=== PATIENT | male | born 1940 | race Caucasian/White ===

== ENCOUNTER 2022-09-28 07:08 | Day surgery (SDC) | payer OTHER ==
[2022-09-27 09:49] VITALS: BMI 30.7
[2022-09-28] MEDS ORDERED: GABAPENTIN 300 MG CAPSULE ONE (08:14)
[2022-09-28] MEDS ORDERED: CELECOXIB 200 MG CAPSULE ONE (08:14)
[2022-09-28] MEDS ORDERED: ceFAZolin SODIUM 1 GM VIAL ONE ×2 (08:18→10:01)
[2022-09-28] MEDS ORDERED: VANCOMYCIN 1,000 MG VIAL (RESTRICTED TO ID ONLY) ONE (08:18)
[2022-09-28] MEDS ORDERED: GABAPENTIN 300 MG CAPSULE PO ONE ×2 (08:20→08:30)
[2022-09-28] MEDS ORDERED: CELECOXIB 200 MG CAPSULE PO ONE ×2 (08:24→08:30)
[2022-09-28] MEDS ORDERED: CEFAZOLIN 2 GM in DEXTROSE 5%-WATER - 50 ML IVPB ONE (08:30)
[2022-09-28] MEDS ORDERED: BUPIVACAINE LIPOSOME/PF (EXPAREL) 266 MG/20 ML VIAL ONE (08:52)
[2022-09-28] MEDS ORDERED: BUPIVACAINE HCL/PF 0.5% (5 MG/ML) 30 ML VIAL IJ ONE (08:52)
[2022-09-28] MEDS ORDERED: MIDAZOLAM HCL 2 MG/2 ML SINGLE DOSE VIAL ONE (08:53)
[2022-09-28] MEDS ORDERED: TRANEXAMIC ACID 1000 MG/10 ML VIAL IVPUSH ONE (09:30)
[2022-09-28] MEDS ORDERED: BUPIVACAINE HCL 50 ML ONE (09:31)
[2022-09-28] MEDS ORDERED: ONDANSETRON 4 MG/2 ML VIAL IVPUSH PRN ×2 (09:41→12:17)
[2022-09-28] MEDS ORDERED: LACTATED RINGERS SOLUTION 1,000 ML IV SCH (09:45)
[2022-09-28] MEDS ORDERED: TRANEXAMIC ACID 1000 MG/10 ML VIAL ONE (10:01)
[2022-09-28] MEDS ORDERED: ONDANSETRON 4 MG/2 ML VIAL ONE (10:01)
[2022-09-28] MEDS ORDERED: DEXAMETHASONE SOD PHOSPHATE 4 MG/1 ML VIAL ONE (10:01)
[2022-09-28] MEDS ORDERED: ePHEDrine SULFATE 50 MG/1 ML AMPULE ONE (10:12)
[2022-09-28] MEDS ORDERED: oxyCODONE HCL 5 MG TABLET PO PRN ×2 (12:17)
[2022-09-28] MEDS ORDERED: ACETAMINOPHEN 1000 MG/100 ML BAG IVPB ONE (12:17)
[2022-09-28] MEDS: KETOROLAC TROMETHAMINE 30 MG/1 ML VIAL IVPUSH SCH ×2 (12:38→22:20)
[2022-09-28] MEDS ORDERED: FENTANYL CITRATE/PF 50 MCG/ML VIAL ONE (13:13)
[2022-09-28 14:18] VITALS: RESP 18
[2022-09-28] MEDS: CEFAZOLIN SODIUM 2 GM in DEXTROSE 5%-WATER 100 ML IVPB SCH (17:16)
[2022-09-28] MEDS ORDERED: ATORVASTATIN CA 40 MG TABLET (FP) PO SCH (22:00)
[2022-09-28] MEDS: SENNOSIDES/DOCUSATE COMBO (SENNA PLUS) TABLET (UD) PO SCH (22:18)
[2022-09-28] MEDS: CARVEDILOL 25 MG TABLET (FP) PO SCH (22:18)
[2022-09-28] MEDS: oxyCODONE HCL 10 MG SUSTAINED ACTING TABLET PO SCH (22:19)
[2022-09-28] MEDS: ACETAMINOPHEN 500 MG TABLET (FP) PO SCH (22:20)
[2022-09-28] MEDS: LACTATED RINGERS SOLUTION 1,000 ML IV SCH (23:39)
[2022-09-28] MEDS: PANTOPRAZOLE 40 MG TABLET PO SCH (23:39)
[2022-09-28] MEDS: MULTIVITAMINS (DAILY MVI) TABLET (FP) PO SCH (23:39)
[2022-09-29] MEDS: ACETAMINOPHEN 500 MG TABLET (FP) PO SCH ×5 (00:30→12:12)
[2022-09-29] MEDS: CEFAZOLIN SODIUM 2 GM in DEXTROSE 5%-WATER 100 ML IVPB SCH (01:20)
[2022-09-29] MEDS ORDERED: ASPIRIN 325 MG TABLET PO SCH (08:00)
[2022-09-29 08:02] LABS: HEMATOCRIT 36.7 % (35.4-49); HEMOGLOBIN 12.5 G/dL (11.7-16.9); MCH 31.8 pg (25.7-33.7); MCHC 33.9 g/dl (32.0-35.9); MEAN CELL VOLUME 93.5 fl (80-96); MEAN PLT VOLUME 10.4 fl (7.5-11.1); PLATELET COUNT 144.5 10^3/uL (134-434); RBC 3.92 10^6/uL (4.00-5.60); RDW 13.8 % (11.9-15.9); WHITE BLOOD COUNT 12.5 10^3/uL (4.0-10.8)
[2022-09-29 08:48] VITALS: PULSE 63
[2022-09-29] MEDS: CARVEDILOL 25 MG TABLET (FP) PO SCH (09:38)
[2022-09-29] MEDS: PANTOPRAZOLE 40 MG TABLET PO SCH (09:38)
[2022-09-29] MEDS: SENNOSIDES/DOCUSATE COMBO (SENNA PLUS) TABLET (UD) PO SCH (09:39)
[2022-09-29] MEDS: oxyCODONE HCL 10 MG SUSTAINED ACTING TABLET PO SCH (09:39)
[2022-09-29] MEDS: MULTIVITAMINS (DAILY MVI) TABLET (FP) PO SCH (09:39)
[2022-09-29] MEDS ORDERED: LOSARTAN POTASSIUM 50 MG TABLET PO SCH (10:00)
[2022-09-29] MEDS ORDERED: TORSEMIDE 10 MG TABLET PO SCH (10:00)
[2022-09-29] MEDS ORDERED: amLODIPine BESYLATE 10 MG TABLET (FP) PO SCH (10:00)
[2022-09-29] MEDS ORDERED: TORSEMIDE 20 MG TABLET (FP) PO SCH (10:00)
[2022-09-29] MEDS: LACTATED RINGERS SOLUTION 1,000 ML IV SCH (12:19)
[2022-09-29 14:00] VITALS: BP 130/49; TEMP 98.4
== END 2022-09-29 16:07 | disposition home health service (06) ==
LOC: FASUSAT 07:08 → FM/S 13:34 → FASUSAT 09-29 16:07
PROVIDERS: ATTEND Orthopaedic Surgery
PROC: 8E0Y0CZ Robotic Assisted Procedure of Lower Extremity, Open Approach (ICD-10-PCS; 2022-09-28)
PROC: 0SRC0J9 Replacement of Right Knee Joint with Synthetic Substitute, Cemented, Open Approach (ICD-10-PCS; principal; 2022-09-28 10:13)
DX: M17.11 Unilateral primary osteoarthritis, right knee (principal)
CPT/HCPCS: 20985; 27447; C1776; S2900; 36415; 73560-TC-RT-FY; 85027; 94760; 97010-GP; 97116-GP; 97162-GP; C1713; C1889